=== PATIENT | female | born 1965 | race Caucasian/White ===

== ENCOUNTER 2017-08-22 08:44 | Day surgery (SDC) | payer BC ==
[2017-08-22] MEDS ORDERED: Sodium Chloride 0.9% 10 ML Syringe FLUSH PRN (09:00)
[2017-08-22] MEDS ORDERED: Lactated Ringers 1,000 ML IV SCH (09:00)
[2017-08-22] MEDS ORDERED: Midazolam 1 MG/ML 2 ML SDV IV ONE (12:00)
[2017-08-22] MEDS ORDERED: Propofol 200 MG/20 ML SDV IV ONE (12:00)
--- NOTE | 2017-08-22 12:36 | PCM.OPNOTE ---
- General Post-Op/Procedure Note Date of Surgery/Procedure: 08/22/17 Operative Procedure(s): c scope with bx Findings: transverse colon polyp x3 scattered diverticulosis Pre Op Diagnosis: hx of colon polyps Post-Op Diagnosis: transverse colon polyp x3. scattered diverticulosis Anesthesia Technique: MAC Primary Surgeon: Vasiliy Morejon Anesthesia Provider: Pat Thorpe Pathology: transverse colon polyp x3 Complications: None Condition: Good Free Text/Narrative:: see dictation
[2017-08-22 14:11] VITALS: BP 112/53
--- NOTE | 2017-08-23 13:50 | OR ---
DATE OF OPERATION: 08/22/2017 SURGEON: Vasiliy Morejon MD PROCEDURE PERFORMED: Colonoscopy with cold forceps biopsy. PREOPERATIVE DIAGNOSIS: History of colon polyps. POSTOPERATIVE DIAGNOSIS: Transverse colon polyp x3 and scattered diverticulosis. INDICATIONS FOR PROCEDURE: This is a 51-year-old female, who presents for a followup colonoscopy. DESCRIPTION OF OPERATION: After an excellent IV sedation was administered, digital rectal exam was performed. No marked abnormality was noted. Flexible colonoscope was inserted and advanced to the cecum without difficulty. The prep was excellent. The following findings were noted. Ascending colon, occasional diverticula. Transverse colon, occasional diverticula. Three small hyperplastic appearing lesions, which were biopsied and submitted in one container. Descending colon, scattered diverticula. Sigmoid, scattered diverticula. Rectum, unremarkable. Colon was deflated as the scope was removed. The patient tolerated the procedure well. Results by letter. /[id number] /MODL
== END 2017-08-22 13:20 | disposition home or self-care (01) ==
LOC: FB.SDS 08:44
PROVIDERS: ATTEND Surgery
DX: D12.3 Benign neoplasm of transverse colon (principal); K57.30 Diverticulosis of large intestine without perforation or abscess without bleeding; F17.210 Nicotine dependence, cigarettes, uncomplicated; E66.9 Obesity, unspecified; Z68.39 Body mass index [BMI] 39.0-39.9, adult; Z86.010 Personal history of colon polyps; K21.9 Gastro-esophageal reflux disease without esophagitis; F33.0 Major depressive disorder, recurrent, mild; Z79.51 Long term (current) use of inhaled steroids; Z80.0 Family history of malignant neoplasm of digestive organs
CPT/HCPCS: 45380; 88305; J2250; J2704; J7120